=== PATIENT | female | born 1965 | race Caucasian/White ===

== ENCOUNTER 2016-03-12 05:31 | Emergency (ER) | payer BC ==
[~2016-03-12] VITALS: Ht 170.2 cm; Wt 98.9 kg
[~2016-03-12 05:31] MED LIST: CYCL5TAB89 PO; IBUP800T24 PO
[2016-03-12 06:35] LABS: Urine RBC None Seen /hpf (0 - 4)
[2016-03-12 06:38] LABS: Basophils # (auto) 0.2 uL; Eosinophils # (auto) 0.1 uL; Hematocrit 41.7 % (36.0-46.0); Lymphocytes % (auto) 16.7 % (10.0-50.0); Mean Corpuscular Hemoglobin 29.9 pg (28.0-32.0); Mean Corpuscular Hgb Conc. 33.5 g/dL (32.0-36.0); Mean Corpuscular Volume 89.1 fL (80.0-100.0); Mean Platelet Volume 8.6 fL (7.4-10.4); Monocytes % (auto) 8.6 % (0.0-12.0); Neutrophils # (auto) 8.8 uL; Neutrophils % (auto) 71.7 % (37.0-80.0); Platelet Count (auto) 368 10^3/uL (140-450); Red Cell Distribution Width 12.9 % (11.6-16.0); SUSPECT VIEW TRANSMISSION; White Blood Cell 12.1 10^3/uL (4.4-10.8)
[2016-03-12 06:46] LABS: Urine Bilirubin Negative (Negative); Urine Blood Negative /uL (Negative); Urine Color Yellow (Yellow); Urine Glucose Normal (Normal); Urine Hyaline Cast FEW /lpf (0 - 2); Urine Ketone Negative (Negative); Urine Mucus FEW (None Seen); Urine Nitrite Negative (Negative); Urine Squamous Epithelial Cell FEW /hpf (<5); Urine Urobilinogen Normal (Negative)
[2016-03-12 07:06] LABS: Albumin 4.3 g/dL (3.4-5.0); BUN/Creatinine Ratio 16.9; Bilirubin, Total 1.2 mg/dL (0.2-1.0); Calcium 9.7 mg/dL (8.5-10.1); Magnesium 2.1 mg/dL (1.6-2.6); Potassium 3.7 mmol/L (3.5-5.1)
[2016-03-12 07:33] LABS: B-Type Natriuretic Peptide 23.32 pg/mL (0-100)
[2016-03-12] MEDS ORDERED: ACETAMINOPHEN 325 MG TAB PO ONE (10:00)
[2016-03-12 11:33] VITALS: BP 115/60
== END 2016-03-12 11:42 | disposition home or self-care (01) ==
LOC: ER 05:36
DX: J02.9 Acute pharyngitis, unspecified (principal); I10 Essential (primary) hypertension; M54.2 Cervicalgia; R07.9 Chest pain, unspecified
CPT/HCPCS: 36415; 71020; 80053; 81001; 83735; 83880; 84484; 85025; 85379; 87400; 93005; 94761

== ENCOUNTER → 2016-10-06 | Outpatient (CLI) | payer BC ==
[2016-10-06 10:21] LABS: Basophils # (auto) 0.1 uL; CONDITION Y; Eosinophils # (auto) 0.2 uL; Eosinophils % (auto) 3.6 % (0.0-7.0); Hematocrit 41.3 % (36.0-46.0); Hemoglobin 13.9 g/dL (12.2-16.2); Lymphocytes # (auto) 2.7 uL; Lymphocytes % (auto) 43.5 % (10.0-50.0); Mean Corpuscular Hemoglobin 30.5 pg (28.0-32.0); Mean Corpuscular Hgb Conc. 33.8 g/dL (32.0-36.0); Mean Corpuscular Volume 90.3 fL (80.0-100.0); Mean Platelet Volume 8.2 fL (7.4-10.4); Monocytes # (auto) 0.5 uL; Monocytes % (auto) 8.2 % (0.0-12.0); Neutrophils # (auto) 2.7 uL; Neutrophils % (auto) 43.7 % (37.0-80.0); Platelet Count (auto) 400 10^3/uL (140-450); Red Cell Distribution Width 14.5 % (11.6-16.0); White Blood Cell 6.2 10^3/uL (4.4-10.8)
[2016-10-06 10:51] LABS: Urine Bilirubin Negative (Negative); Urine Blood TRACE /uL (Negative); Urine Color Yellow (Yellow); Urine Glucose Normal (Normal); Urine Ketone Negative (Negative); Urine Mucus FEW (None Seen); Urine Nitrite Negative (Negative); Urine RBC 3 /hpf (0 - 4); Urine Squamous Epithelial Cell FEW /hpf (<5); Urine Urobilinogen Normal (Negative); Urine pH 6.5 (5.0-8.0)
[2016-10-06 11:16] LABS: Albumin 3.9 g/dL (3.4-5.0); BUN/Creatinine Ratio 23.4; Bilirubin, Total 1.1 mg/dL (0.2-1.0); Calcium 9.5 mg/dL (8.5-10.1); Potassium 3.8 mmol/L (3.5-5.1); Total Protein 7.9 g/dL (6.4-8.2)
== END | disposition home or self-care (01) ==
LOC: LAB 09:51
PROVIDERS: ATTEND Internal Medicine
DX: I10 Essential (primary) hypertension (principal); E78.5 Hyperlipidemia, unspecified; E11.9 Type 2 diabetes mellitus without complications; E55.9 Vitamin D deficiency, unspecified; N20.0 Calculus of kidney
CPT/HCPCS: 36415; 80053; 80061; 81001; 82306; 83036; 84443; 85025

== ENCOUNTER → 2017-01-25 | Outpatient (CLI) | payer BC ==
[2017-01-25 09:37] LABS: Cholesterol 172 mg/dL (< 200); HDL Cholesterol 70 mg/dL (40-59); LDL Cholesterol 90 mg/dL (< 100); Triglycerides 109 mg/dL (< 150)
== END | disposition home or self-care (01) ==
LOC: LAB 08:36
PROVIDERS: ATTEND Physician Assistant
DX: E78.2 Mixed hyperlipidemia (principal); E03.9 Hypothyroidism, unspecified
CPT/HCPCS: 36415; 80061; 84439; 84443; 84481

== ENCOUNTER 2017-07-22 18:20 | Emergency (ER) | payer BC ==
[~2017-07-22] VITALS: Ht 170.2 cm; Wt 99.8 kg
[2017-07-22 18:30] VITALS: BP 131/95
[2017-07-22] MEDS ORDERED: cefTRIAXone SOD 1,000 MG VL IM ONE (19:45)
[2017-07-22] MEDS ORDERED: IPRATROPIUM BROM 0.5 MG/2.5ML INH SOL NEB ONE (19:45)
[2017-07-22] MEDS ORDERED: TRIAMCINOLONE 40MG/ML 1ML VIAL IM ONE (19:45)
[2017-07-22] MEDS ORDERED: ALBUTEROL SULF 2.5 MG/0.5ML(0.5%) NEB SOLN NEB ONE (19:45)
== END 2017-07-22 20:08 | disposition home or self-care (01) ==
LOC: ER 18:20
DX: J40 Bronchitis, not specified as acute or chronic (principal); I10 Essential (primary) hypertension
CPT/HCPCS: 96372; 99283; J0696; J3301

== ENCOUNTER 2017-10-05 17:26 | Emergency (ER) | payer BC ==
[~2017-10-05] VITALS: Ht 170.2 cm; Wt 97.5 kg
[2017-10-05] MEDS ORDERED: ASPirin 81 mg TAB PO ONE (18:15)
[2017-10-05 18:18] LABS: Basophils # (auto) 0.1 uL; Basophils % (auto) 0.6 % (0.0-2.0); Eosinophils # (auto) 0.1 uL; Eosinophils % (auto) 0.5 % (0.0-7.0); Hematocrit 46.1 % (36.0-46.0); Hemoglobin 16.2 g/dL (12.2-16.2); Lymphocytes # (auto) 2.1 uL; Lymphocytes % (auto) 21.5 % (10.0-50.0); Mean Corpuscular Hemoglobin 31.8 pg (28.0-32.0); Mean Corpuscular Hgb Conc. 35.1 g/dL (32.0-36.0); Mean Corpuscular Volume 90.5 fL (80.0-100.0); Monocytes # (auto) 0.9 uL; Neutrophils # (auto) 6.6 uL; Neutrophils % (auto) 68.4 % (37.0-80.0); Platelet Count (auto) 404 10^3/uL (140-450); Red Cell Distribution Width 14.1 % (11.8-14.3); White Blood Cell 9.7 10^3/uL (4.4-10.8)
[2017-10-05 18:40] LABS: Alanine Aminotransferase 25 U/L (13-56); Albumin 4.4 g/dL (3.4-5.0); Alkaline Phosphatase 94 U/L (45-117); Anion Gap 13 (5-15); Aspartate Aminotransferase 18 U/L (15-37); BUN/Creatinine Ratio 16.2; Bilirubin, Total 1.4 mg/dL (0.2-1.0); Blood Urea Nitrogen 17 mg/dL (7-18); Calcium 9.4 mg/dL (8.5-10.1); Carbon Dioxide 22 mmol/L (21-32); Chloride 100 mmol/L (98-107); GFR African American 71 mL/min; GFR Non-African American 58 mL/min; Glucose 93 mg/dL (74-106); Potassium 3.8 mmol/L (3.5-5.1); Sodium 135 mmol/L (136-145); Total Protein 8.8 g/dL (6.4-8.2)
[2017-10-05 21:23] LABS: Urine Bacteria NONE SEEN /hpf (None Seen); Urine Blood Negative /uL (Negative); Urine Mucus FEW (None Seen); Urine Specific Gravity 1.008 (1.001-1.035); Urine WBC 4 /hpf (0 - 5)
[2017-10-06 00:28] VITALS: BP 126/86
== END 2017-10-06 00:33 | disposition home or self-care (01) ==
LOC: ER 17:27
DX: N23 Unspecified renal colic (principal); N39.0 Urinary tract infection, site not specified; K21.9 Gastro-esophageal reflux disease without esophagitis; I10 Essential (primary) hypertension
CPT/HCPCS: 36415; 71046; 74176; 80053; 81001; 84484; 85025; 85379; 93005; 94761

== ENCOUNTER 2017-10-07 13:41 | Inpatient (IN) | payer BC ==
[~2017-10-07] VITALS: Ht 170.2 cm; Wt 100.3 kg
[2017-10-07] MEDS ORDERED: LORazepam 0.5 MG TAB PO PRN (18:30)
[2017-10-07] MEDS ORDERED: cefTRIAXone 1GM/10ml IVPUSH 10 ML IV ONE (18:30)
[2017-10-07] MEDS ORDERED: NITROGLYCERIN 0.4 MG SL TAB SL PRN (18:30)
[2017-10-07] MEDS ORDERED: TEMAZEPAM 15 MG CAP PO PRN (18:30)
[2017-10-07] MEDS ORDERED: PROMETHAZINE HCL 25 MG/ML 1ML IV PRN (18:30)
[2017-10-07] MEDS ORDERED: MORPHINE SULF INJ 2 MG/ML SYRINGE 1ML IV PRN ×2 (18:30)
[2017-10-07] MEDS: SODIUM CHLORIDE 0.9% 1,000 ML IV SCH (18:44)
[2017-10-07 20:00] VITALS: BP 118/83
[2017-10-07 20:30] VITALS: BP 124/76
[2017-10-07] MEDS: METOPROLOL TARTRATE 25 MG TAB PO SCH (20:30)
[2017-10-07] MEDS: ATORVASTATIN 20 MG TAB PO SCH (20:37)
[2017-10-07 20:40] VITALS: BP 130/73
[2017-10-07] MEDS: ENOXAPARIN SOD 40 MG/0.4 ML SYRINGE SC SCH (21:52)
[2017-10-07 22:00] VITALS: BP 106/78
[2017-10-08] MEDS: ACETAMINOPHEN 500 MG TAB PO PRN ×4 (01:59→19:15)
[2017-10-08] MEDS ORDERED: ATOR20TA50 PO (02:18)
[2017-10-08] MEDS ORDERED: CEPH250C PO (02:18)
[2017-10-08] MEDS ORDERED: TRIA75TA55 PO (02:18)
[2017-10-08] MEDS ORDERED: ATEN-60 PO (02:18)
[2017-10-08] MEDS ORDERED: LANS30TA8 PO (02:18)
[2017-10-08] MEDS ORDERED: MECL-87 PO (02:18)
[2017-10-08 05:00] VITALS: BP 113/68
[2017-10-08] MEDS: SODIUM CHLORIDE 0.9% 1,000 ML IV SCH ×2 (05:03→16:49)
[2017-10-08 05:54] LABS: Cholesterol 152 mg/dL (< 200); HDL Cholesterol 53 mg/dL (40-59); LDL Cholesterol 86 mg/dL (< 100); Triglycerides 89 mg/dL (< 150)
[2017-10-08 08:00] VITALS: BP 114/70
[2017-10-08 08:35] VITALS: BP 114/70
[2017-10-08] MEDS: cefTRIAXone 1GM/10ml IVPUSH 10 ML IV SCH (09:49)
[2017-10-08] MEDS: ASPirin 81 mg TAB PO SCH (09:50)
[2017-10-08] MEDS: ENOXAPARIN SOD 40 MG/0.4 ML SYRINGE SC SCH (09:51)
[2017-10-08] MEDS: METOPROLOL TARTRATE 25 MG TAB PO SCH ×2 (09:59→21:06)
[2017-10-08] MEDS ORDERED: NITROGLYCERIN 0.2MG/HR TOPICAL PATCH TD SCH (10:00)
[2017-10-08] MEDS ORDERED: PANTOPRAZOLE 40 MG TAB PO SCH (10:00)
[2017-10-08] MEDS ORDERED: FLUCONAZOLE 100 MG TAB PO ONE (13:30)
[2017-10-08] MEDS ORDERED: AZITHROMYCIN 250 MG TAB PO ONE (13:30)
[2017-10-08 16:34] VITALS: BP 101/56
[2017-10-08] MEDS: MAGNESIUM OXIDE 400 MG TAB PO SCH (20:59)
[2017-10-08] MEDS: ATORVASTATIN 20 MG TAB PO SCH (21:00)
[2017-10-08] MEDS: PANTOPRAZOLE 40 MG TAB PO SCH (21:00)
[2017-10-08 21:38] VITALS: BP 92/58
[2017-10-08] MEDS: HYDROcodone-ACET 5/325MG TAB PO PRN (23:13)
[2017-10-09 05:09] VITALS: BP 109/65
[2017-10-09] MEDS: SODIUM CHLORIDE 0.9% 1,000 ML IV SCH ×2 (05:11→21:22)
[2017-10-09 05:50] LABS: Basophils # (auto) 0.1 uL; Basophils % (auto) 0.9 % (0.0-2.0); Eosinophils # (auto) 0.1 uL; Eosinophils % (auto) 1.8 % (0.0-7.0); Hematocrit 39.5 % (36.0-46.0); Hemoglobin 13.5 g/dL (12.2-16.2); Lymphocytes % (auto) 33.5 % (10.0-50.0); Mean Corpuscular Hgb Conc. 34.1 g/dL (32.0-36.0); Mean Corpuscular Volume 90.9 fL (80.0-100.0); Monocytes # (auto) 0.6 uL; Monocytes % (auto) 9.5 % (0.0-12.0); Neutrophils # (auto) 3.2 uL; Neutrophils % (auto) 54.3 % (37.0-80.0); Nucleated Red Blood Cells % 0.2 %; Platelet Count (auto) 323 10^3/uL (140-450); Red Blood Cells 4.35 10^6/uL (4.0-5.20); White Blood Cell 5.9 10^3/uL (4.4-10.8)
[2017-10-09 06:23] LABS: Albumin 3.5 g/dL (3.4-5.0); BUN/Creatinine Ratio 17.4; Bilirubin, Total 1.1 mg/dL (0.2-1.0); Calcium 8.5 mg/dL (8.5-10.1); Potassium 3.6 mmol/L (3.5-5.1); Total Protein 6.8 g/dL (6.4-8.2)
[2017-10-09 08:19] VITALS: BP 122/76
[2017-10-09] MEDS ORDERED: AZITHROMYCIN 250 MG TAB PO SCH (10:00)
[2017-10-09] MEDS: cefTRIAXone 1GM/10ml IVPUSH 10 ML IV SCH (10:09)
[2017-10-09] MEDS: ENOXAPARIN SOD 40 MG/0.4 ML SYRINGE SC SCH (10:10)
[2017-10-09] MEDS: PANTOPRAZOLE 40 MG TAB PO SCH ×2 (10:11→21:22)
[2017-10-09] MEDS: METOPROLOL TARTRATE 25 MG TAB PO SCH ×2 (10:12→21:10)
[2017-10-09] MEDS: FLUCONAZOLE 100 MG TAB PO SCH (10:13)
[2017-10-09] MEDS: MAGNESIUM OXIDE 400 MG TAB PO SCH ×2 (10:13→21:05)
[2017-10-09] MEDS: ASPirin 81 mg TAB PO SCH (10:13)
[2017-10-09] MEDS: LEVOFLOXACIN 750MG 150 ML IV SCH (11:40)
[2017-10-09 12:01] VITALS: BP 120/67
[2017-10-09 16:40] VITALS: BP 115/69
[2017-10-09] MEDS: ATORVASTATIN 20 MG TAB PO SCH (21:05)
[2017-10-09] MEDS: HYDROcodone-ACET 5/325MG TAB PO PRN (21:11)
[2017-10-09 22:00] VITALS: BP 129/75
[2017-10-10] MEDS: ACETAMINOPHEN 500 MG TAB PO PRN (04:17)
[2017-10-10 05:00] VITALS: BP 122/76
[2017-10-10 09:00] VITALS: BP 115/69
[2017-10-10] MEDS: MAGNESIUM OXIDE 400 MG TAB PO SCH ×2 (10:47→21:40)
[2017-10-10] MEDS: ASPirin 81 mg TAB PO SCH (10:47)
[2017-10-10] MEDS: ENOXAPARIN SOD 40 MG/0.4 ML SYRINGE SC SCH (10:47)
[2017-10-10] MEDS: LEVOFLOXACIN 750MG 150 ML IV SCH (10:47)
[2017-10-10] MEDS: PANTOPRAZOLE 40 MG TAB PO SCH ×2 (10:48→21:41)
[2017-10-10] MEDS: METOPROLOL TARTRATE 25 MG TAB PO SCH ×2 (10:48→21:40)
[2017-10-10] MEDS: FLUCONAZOLE 100 MG TAB PO SCH (10:48)
[2017-10-10 13:00] VITALS: BP 124/77
[2017-10-10] MEDS: SODIUM CHLORIDE 0.9% 1,000 ML IV SCH (15:26)
[2017-10-10 17:03] VITALS: BP 137/84
[2017-10-10] MEDS: ATORVASTATIN 20 MG TAB PO SCH (21:39)
[2017-10-10 22:00] VITALS: BP 131/68
[2017-10-11 05:00] VITALS: BP 134/69
[2017-10-11 06:16] LABS: Basophils # (auto) 0.1 uL; Basophils % (auto) 1.2 % (0.0-2.0); Eosinophils # (auto) 0.2 uL; Hematocrit 38.8 % (36.0-46.0); Hemoglobin 13.3 g/dL (12.2-16.2); Lymphocytes # (auto) 2.1 uL; Lymphocytes % (auto) 39.7 % (10.0-50.0); Mean Corpuscular Hemoglobin 31.2 pg (28.0-32.0); Mean Corpuscular Hgb Conc. 34.2 g/dL (32.0-36.0); Mean Corpuscular Volume 91.2 fL (80.0-100.0); Monocytes # (auto) 0.5 uL; Monocytes % (auto) 9.9 % (0.0-12.0); Neutrophils # (auto) 2.4 uL; Neutrophils % (auto) 45.2 % (37.0-80.0); Nucleated Red Blood Cells % 0.1 %; Platelet Count (auto) 318 10^3/uL (140-450); Red Blood Cells 4.26 10^6/uL (4.0-5.20); Red Cell Distribution Width 13.9 % (11.8-14.3); White Blood Cell 5.4 10^3/uL (4.4-10.8)
[2017-10-11 06:33] LABS: Potassium 3.2 mmol/L (3.5-5.1)
[2017-10-11 06:36] LABS: BUN/Creatinine Ratio 10.1
[2017-10-11 08:00] VITALS: BP 139/75
[2017-10-11] MEDS: HYDROcodone-ACET 5/325MG TAB PO PRN (08:25)
[2017-10-11] MEDS: SODIUM CHLORIDE 0.9% 1,000 ML IV SCH (09:10)
[2017-10-11] MEDS ORDERED: ADENOSINE 84 MG in GIVE UN-DILUTED 0 ML IV ONE (09:30)
[2017-10-11 09:36] VITALS: BP 139/75
[2017-10-11 10:48] VITALS: BP 150/95
[2017-10-11] MEDS ORDERED: FLUC100T34 PO (12:26)
[2017-10-11] MEDS ORDERED: LEVO-28 PO (12:26)
[2017-10-11] MEDS ORDERED: CHOL20007 PO (12:26)
[2017-10-11 12:30] VITALS: BP 126/75
[2017-10-11] MEDS ORDERED: MORPHINE SULF INJ 2 MG/ML SYRINGE 1ML IV PRN ×2 (12:30)
[2017-10-11] MEDS ORDERED: HYDROcodone-ACET 5/325MG TAB PO PRN (12:30)
[2017-10-11] MEDS ORDERED: POTASSIUM CHL 20 Meq TABLET PO ONE (12:30)
[2017-10-11] MEDS: LEVOFLOXACIN 750MG 150 ML IV SCH (14:29)
[2017-10-11] MEDS: ENOXAPARIN SOD 40 MG/0.4 ML SYRINGE SC SCH (14:29)
[2017-10-11] MEDS: MAGNESIUM OXIDE 400 MG TAB PO SCH (14:30)
[2017-10-11] MEDS: FLUCONAZOLE 100 MG TAB PO SCH (14:30)
[2017-10-11] MEDS: PANTOPRAZOLE 40 MG TAB PO SCH (14:30)
[2017-10-11] MEDS: ASPirin 81 mg TAB PO SCH (14:30)
[2017-10-11] MEDS: METOPROLOL TARTRATE 25 MG TAB PO SCH (14:33)
[2017-10-11 16:59] VITALS: BP 112/77
== END 2017-10-11 19:14 | disposition home or self-care (01) | DRG 690 ==
LOC: ER 13:45 → TELE 13:46 → TELE-WESTW 19:56
PROVIDERS: ADMIT Internal Medicine; ATTEND Internal Medicine
DX: N39.0 Urinary tract infection, site not specified (principal); I25.10 Atherosclerotic heart disease of native coronary artery without angina pectoris; E66.01 Morbid (severe) obesity due to excess calories; F41.9 Anxiety disorder, unspecified; J32.8 Other chronic sinusitis; K21.9 Gastro-esophageal reflux disease without esophagitis; I10 Essential (primary) hypertension; B96.5 Pseudomonas (aeruginosa) (mallei) (pseudomallei) as the cause of diseases classified elsewhere; E78.5 Hyperlipidemia, unspecified; I49.3 Ventricular premature depolarization; J01.90 Acute sinusitis, unspecified; Z80.9 Family history of malignant neoplasm, unspecified; Z68.34 Body mass index [BMI] 34.0-34.9, adult; Z87.442 Personal history of urinary calculi
CPT/HCPCS: 36415; 70450; 70551; 78452; 80048; 80053; 80061; 82306; 82550; 82962; 83735; 83880; 84443; 84484; 85025; 85379; 85652; 86141; 87086; 87088; 87186; 93005; 93017; 93306; 96361; 96374; A6257; J0153; J0696; J1956

== ENCOUNTER → 2017-10-19 | Outpatient (CLI) | payer BC ==
[~2017-10-19] MED LIST changes: +ATEN-60 PO; +ATOR20TA50 PO; +CHOL20007 PO; -CYCL5TAB89 PO; +FLUC100T34 PO; -IBUP800T24 PO; +LANS30TA8 PO; +LEVO-28 PO; +MECL-87 PO; +TRIA75TA55 PO
[2017-10-19 12:07] LABS: Urine Bacteria NONE SEEN /hpf (None Seen); Urine Blood Negative /uL (Negative); Urine Mucus FEW (None Seen); Urine Specific Gravity 1.017 (1.001-1.035); Urine WBC 2 /hpf (0 - 5)
== END | disposition home or self-care (01) ==
LOC: LAB 11:51
PROVIDERS: ATTEND Registered Nurse General Practice
DX: N39.0 Urinary tract infection, site not specified (principal); K21.9 Gastro-esophageal reflux disease without esophagitis; I10 Essential (primary) hypertension
CPT/HCPCS: 81001; 87086

== ENCOUNTER → 2017-12-01 | Outpatient (CLI) | payer BC | END | disposition home or self-care (01) | LOC: LAB 07:29 | PROVIDERS: ATTEND Physician Assistant | DX: N39.0 Urinary tract infection, site not specified (principal) | CPT/HCPCS: 87086 ==

== ENCOUNTER → 2018-08-22 | Outpatient (CLI) | payer BC ==
[2018-08-22 10:47] LABS: Basophils # (auto) 0.1 uL; Basophils % (auto) 1.2 % (0.0-2.0); Eosinophils # (auto) 0.2 uL; Eosinophils % (auto) 4.3 % (0.0-7.0); Hematocrit 41.7 % (36.0-46.0); Lymphocytes # (auto) 2.2 uL; Lymphocytes % (auto) 43.3 % (10.0-50.0); Mean Corpuscular Hemoglobin 30.5 pg (28.0-32.0); Mean Corpuscular Hgb Conc. 33.7 g/dL (32.0-36.0); Mean Corpuscular Volume 90.5 fL (80.0-100.0); Monocytes # (auto) 0.4 uL; Monocytes % (auto) 8.4 % (0.0-12.0); Neutrophils # (auto) 2.2 uL; Neutrophils % (auto) 42.8 % (37.0-80.0); Platelet Count (auto) 308 10^3/uL (140-450); White Blood Cell 5.2 10^3/uL (4.4-10.8)
[2018-08-22 10:53] LABS: Urine Bacteria FEW /hpf (None Seen); Urine Blood 1+ /uL (Negative); Urine Mucus FEW (None Seen); Urine Specific Gravity 1.024 (1.001-1.035); Urine WBC 3 /hpf (0 - 5)
[2018-08-22 14:01] LABS: Albumin 3.9 g/dL (3.4-5.0); Bilirubin, Total 0.9 mg/dL (0.2-1.0); Calcium 9.1 mg/dL (8.5-10.1); Total Protein 7.3 g/dL (6.4-8.2)
== END | disposition home or self-care (01) ==
LOC: LAB 10:24
PROVIDERS: ATTEND Internal Medicine
DX: N39.0 Urinary tract infection, site not specified (principal); E55.9 Vitamin D deficiency, unspecified; I10 Essential (primary) hypertension; F41.1 Generalized anxiety disorder; R73.03 Prediabetes
CPT/HCPCS: 36415; 80053; 81001; 83036; 84443; 84550; 85025

== ENCOUNTER → 2018-08-31 | Outpatient (CLI) | payer BC | END | disposition home or self-care (01) | LOC: LAB 12:05 | PROVIDERS: ATTEND Internal Medicine | DX: R31.29 Other microscopic hematuria (principal) | CPT/HCPCS: 87086 ==

== ENCOUNTER → 2018-11-23 | Outpatient (CLI) | payer BC ==
[2018-11-23 12:12] LABS: Cholesterol 211 mg/dL (< 200); HDL Cholesterol 59 mg/dL (40-59); LDL Cholesterol 143 mg/dL (< 100); Triglycerides 73 mg/dL (< 150)
== END | disposition home or self-care (01) ==
LOC: LAB 09:54
PROVIDERS: ATTEND Internal Medicine
DX: Z12.11 Encounter for screening for malignant neoplasm of colon (principal); E11.9 Type 2 diabetes mellitus without complications
CPT/HCPCS: 36415; 80061; 82043

== ENCOUNTER → 2018-11-28 | Outpatient (CLI) | payer BC | END | disposition home or self-care (01) | LOC: LAB 12:58 | PROVIDERS: ATTEND Internal Medicine | DX: Z12.11 Encounter for screening for malignant neoplasm of colon (principal); E11.9 Type 2 diabetes mellitus without complications | CPT/HCPCS: 82270 ==

== ENCOUNTER → 2018-12-14 | Outpatient (CLI) | payer BC ==
[2018-12-14 17:15] LABS: Albumin 4.1 g/dL (3.4-5.0)
[2018-12-14 17:50] LABS: Bilirubin, Total 0.9 mg/dL (0.2-1.0)
[2018-12-14 17:51] LABS: Total Protein 7.9 g/dL (6.4-8.2)
[2018-12-14 23:10] LABS: Bilirubin, Direct 0.2 mg/dL (0-0.2)
== END | disposition home or self-care (01) ==
LOC: LAB 15:42
PROVIDERS: ATTEND Internal Medicine
DX: E11.9 Type 2 diabetes mellitus without complications (principal); I10 Essential (primary) hypertension
CPT/HCPCS: 36415; 80076

== ENCOUNTER → 2018-12-28 | Outpatient (CLI) | payer BC ==
[2018-12-28 09:30] LABS: Basophils # (auto) 0.1 uL; Basophils % (auto) 1.2 % (0.0-2.0); Eosinophils # (auto) 0.2 uL; Eosinophils % (auto) 2.4 % (0.0-7.0); Hematocrit 40.9 % (36.0-46.0); Hemoglobin 13.9 g/dL (12.2-16.2); Lymphocytes # (auto) 2.8 uL; Lymphocytes % (auto) 37.3 % (10.0-50.0); Mean Corpuscular Hemoglobin 30.8 pg (28.0-32.0); Mean Corpuscular Hgb Conc. 34.1 g/dL (32.0-36.0); Mean Corpuscular Volume 90.4 fL (80.0-100.0); Monocytes # (auto) 0.6 uL; Monocytes % (auto) 8.5 % (0.0-12.0); Neutrophils # (auto) 3.9 uL; Neutrophils % (auto) 50.6 % (37.0-80.0); Platelet Count (auto) 365 10^3/uL (140-450); Red Blood Cells 4.53 10^6/uL (4.0-5.20); Red Cell Distribution Width 13.9 % (11.8-14.3); White Blood Cell 7.6 10^3/uL (4.4-10.8)
[2018-12-28 09:47] LABS: INR 1.01 (0.9-1.15); Partial Thromboplastin Time 24.8 sec (23.64-32.05)
[2018-12-28 10:12] LABS: Potassium 4.1 mmol/L (3.5-5.1)
[2018-12-28 10:18] LABS: BUN/Creatinine Ratio 27.3; Calcium 9.1 mg/dL (8.5-10.1)
== END | disposition home or self-care (01) ==
LOC: LAB 08:48
PROVIDERS: ATTEND Internal Medicine
DX: Z01.818 Encounter for other preprocedural examination (principal); I10 Essential (primary) hypertension; K21.9 Gastro-esophageal reflux disease without esophagitis; E66.9 Obesity, unspecified; E78.5 Hyperlipidemia, unspecified; F41.9 Anxiety disorder, unspecified; Z98.890 Other specified postprocedural states
CPT/HCPCS: 36415; 80048; 85025; 85610; 85730

== ENCOUNTER → 2018-12-30 | Outpatient (CLI) | payer BC | END | disposition home or self-care (01) | LOC: Rad HDHVI 08:54 | PROVIDERS: ATTEND Internal Medicine Cardiovascular Disease | DX: R42 Dizziness and giddiness (principal); R53.83 Other fatigue; R94.39 Abnormal result of other cardiovascular function study | CPT/HCPCS: 93306 ==

== ENCOUNTER → 2019-01-16 | Outpatient (CLI) | payer BC ==
[2019-01-16 09:56] LABS: Basophils # (auto) 0.1 uL; Basophils % (auto) 1.2 % (0.0-2.0); Eosinophils # (auto) 0.3 uL; Eosinophils % (auto) 3.7 % (0.0-7.0); Hemoglobin 14.5 g/dL (12.2-16.2); Mean Corpuscular Hemoglobin 30.7 pg (28.0-32.0); Mean Corpuscular Hgb Conc. 33.8 g/dL (32.0-36.0); Mean Corpuscular Volume 90.7 fL (80.0-100.0); Monocytes # (auto) 0.6 uL; Monocytes % (auto) 8.9 % (0.0-12.0); Neutrophils # (auto) 2.8 uL; Neutrophils % (auto) 42.2 % (37.0-80.0); Nucleated Red Blood Cells % 0.1 %; Platelet Count (auto) 337 10^3/uL (140-450); Red Blood Cells 4.74 10^6/uL (4.0-5.20); Red Cell Distribution Width 14.3 % (11.8-14.3); White Blood Cell 6.7 10^3/uL (4.4-10.8)
[2019-01-16 10:35] LABS: Potassium 4.2 mmol/L (3.5-5.1)
[2019-01-16 10:49] LABS: Albumin 4.2 g/dL (3.4-5.0); BUN/Creatinine Ratio 17.8; Bilirubin, Total 0.9 mg/dL (0.2-1.0); Calcium 9.3 mg/dL (8.5-10.1)
[2019-01-16 10:53] LABS: INR 1.01 (0.9-1.15); Partial Thromboplastin Time 24.6 sec (23.64-32.05)
== END | disposition home or self-care (01) ==
LOC: LAB 09:32
PROVIDERS: ATTEND Internal Medicine
DX: Z01.818 Encounter for other preprocedural examination (principal); E11.9 Type 2 diabetes mellitus without complications; E78.5 Hyperlipidemia, unspecified; K21.9 Gastro-esophageal reflux disease without esophagitis; I10 Essential (primary) hypertension
CPT/HCPCS: 36415; 80053; 85025; 85610; 85730

== ENCOUNTER → 2019-01-18 | Outpatient (CLI) | payer BC ==
[2019-01-18 10:35] LABS: Urine Bacteria NONE SEEN /hpf (None Seen); Urine Blood 1+ /uL (Negative); Urine Mucus FEW (None Seen); Urine Specific Gravity 1.022 (1.001-1.035); Urine WBC 2 /hpf (0 - 5)
[2019-01-18 10:59] LABS: Albumin 4.1 g/dL (3.4-5.0)
[2019-01-18 11:03] LABS: Bilirubin, Direct 0.2 mg/dL (0-0.2); Bilirubin, Total 0.7 mg/dL (0.2-1.0)
== END | disposition home or self-care (01) ==
LOC: LAB 09:59
PROVIDERS: ATTEND Internal Medicine
DX: I10 Essential (primary) hypertension (principal); E11.9 Type 2 diabetes mellitus without complications
CPT/HCPCS: 36415; 80061; 80076; 81001; 82306; 83036

== ENCOUNTER 2019-01-19 07:20 | Day surgery (SDC) | payer BC ==
[~2019-01-19] VITALS: Ht 170.2 cm; Wt 101.2 kg
[2019-01-19] MEDS ORDERED: LIDOCAINE 2%HCL (LOCAL ANESTH.) INJ 20ML MDV ONE (08:41)
[2019-01-19] MEDS ORDERED: IOHEXOL 350 MG/ML 100ML IJ ONE ×2 (08:43→09:45)
[2019-01-19] MEDS ORDERED: SODIUM CHL 0.9% 0 ML ONE (08:48)
[2019-01-19] MEDS ORDERED: fentaNYL CITRATE 100 MCG/2 ML VL ONE (08:48)
[2019-01-19] MEDS ORDERED: MIDAZOLAM HCL 1MG/1ML-2 ML VIAL ONE (08:48)
[2019-01-19] MEDS ORDERED: ANGIOMAX 250 MG VIAL IV ONE (08:48)
== END 2019-01-19 12:15 | disposition home or self-care (01) ==
LOC: CATH 07:20
PROVIDERS: ATTEND Internal Medicine Cardiovascular Disease
DX: R94.39 Abnormal result of other cardiovascular function study (principal); R06.02 Shortness of breath; I10 Essential (primary) hypertension; E78.5 Hyperlipidemia, unspecified; E66.9 Obesity, unspecified; F41.9 Anxiety disorder, unspecified; Z82.49 Family history of ischemic heart disease and other diseases of the circulatory system; Z79.899 Other long term (current) drug therapy; Z68.34 Body mass index [BMI] 34.0-34.9, adult
CPT/HCPCS: 93458; C1760; C1894; J1644; J2250; J3010; Q9967; 99152

== ENCOUNTER → 2019-02-02 | Outpatient (CLI) | payer BC | END | disposition home or self-care (01) | LOC: XY 08:50 | PROVIDERS: ATTEND Internal Medicine | DX: R42 Dizziness and giddiness (principal) | CPT/HCPCS: 93886 ==

== ENCOUNTER → 2019-02-24 | Outpatient (CLI) | payer BC | END | disposition home or self-care (01) | LOC: LAB 06:54 | PROVIDERS: ATTEND Urology | DX: N39.0 Urinary tract infection, site not specified (principal) | CPT/HCPCS: 87086 ==

== ENCOUNTER → 2019-03-06 | Day surgery (SDC) | payer BC ==
[2019-03-02 09:19] LABS: Basophils # (auto) 0.1 uL; Basophils % (auto) 1.6 % (0.0-2.0); Eosinophils # (auto) 0.3 uL; Eosinophils % (auto) 5.1 % (0.0-7.0); Hematocrit 39.2 % (36.0-46.0); Hemoglobin 13.3 g/dL (12.2-16.2); Lymphocytes # (auto) 2.3 uL; Mean Corpuscular Hemoglobin 30.6 pg (28.0-32.0); Mean Corpuscular Hgb Conc. 33.8 g/dL (32.0-36.0); Mean Corpuscular Volume 90.5 fL (80.0-100.0); Monocytes # (auto) 0.6 uL; Monocytes % (auto) 10.1 % (0.0-12.0); Neutrophils # (auto) 2.4 uL; Neutrophils % (auto) 42.2 % (37.0-80.0); Platelet Count (auto) 331 10^3/uL (140-450); Red Blood Cells 4.34 10^6/uL (4.0-5.20); Red Cell Distribution Width 14.4 % (11.8-14.3); White Blood Cell 5.6 10^3/uL (4.4-10.8)
[2019-03-02 10:54] LABS: INR 1.02 (0.9-1.15); Partial Thromboplastin Time 26.1 sec (23.64-32.05)
[~2019-03-06] VITALS: Ht 170.2 cm; Wt 107.0 kg
[~2019-03-06] MED LIST changes: +ALPR0.254 PO; -CHOL20007 PO; -FLUC100T34 PO; +FLUMAZENIL 0.1 MG/ML INJ 10ML MDV IV ONE; -LEVO-28 PO; -MECL-87 PO; +NALOXONE HCL 0.4 MG/ML VIAL ONE; +SODIUM CHLORIDE LOCK 10 ML ONE; -TRIA75TA55 PO; +diphenhdrAMINE HCL 50 MG/1 ML VL ONE
[2019-03-06] MEDS: MIDAZOLAM HCL 5 MG/ML-1ML VIAL ONE ×2 (09:11→09:14)
[2019-03-06] MEDS: fentaNYL CITRATE 100 MCG/2 ML VL ONE ×2 (09:11→09:14)
[2019-03-06 09:57] VITALS: BP 107/64
== END | disposition home or self-care (01) ==
LOC: GI 07:51
PROVIDERS: ATTEND Internal Medicine Gastroenterology
DX: Z12.11 Encounter for screening for malignant neoplasm of colon (principal); K63.5 Polyp of colon; K64.8 Other hemorrhoids; F41.9 Anxiety disorder, unspecified; F32.9 Major depressive disorder, single episode, unspecified; E78.5 Hyperlipidemia, unspecified; E66.8 Other obesity; I10 Essential (primary) hypertension; K21.9 Gastro-esophageal reflux disease without esophagitis; Z87.442 Personal history of urinary calculi; Z78.0 Asymptomatic menopausal state; Z68.38 Body mass index [BMI] 38.0-38.9, adult; Z79.899 Other long term (current) drug therapy
CPT/HCPCS: 36415; 45380; 85025; 85610; 85730; 88305; J1200; J2250; J3010; J7030; 99152

== ENCOUNTER → 2019-04-13 | Outpatient (CLI) | payer BC ==
[~2019-04-13] MED LIST changes: -FLUMAZENIL 0.1 MG/ML INJ 10ML MDV IV ONE; -NALOXONE HCL 0.4 MG/ML VIAL ONE; -SODIUM CHLORIDE LOCK 10 ML ONE; -diphenhdrAMINE HCL 50 MG/1 ML VL ONE
== END | disposition home or self-care (01) ==
LOC: LAB 13:36
PROVIDERS: ATTEND Urology
DX: N39.0 Urinary tract infection, site not specified (principal)
CPT/HCPCS: 87086

== ENCOUNTER → 2019-04-24 | Outpatient (CLI) | payer BC ==
[2019-04-24 10:38] LABS: Albumin 3.8 g/dL (3.4-5.0)
[2019-04-24 10:41] LABS: Bilirubin, Direct 0.2 mg/dL (0-0.2); Bilirubin, Total 0.8 mg/dL (0.2-1.0); Total Protein 7.4 g/dL (6.4-8.2)
== END | disposition home or self-care (01) ==
LOC: LAB 09:52
PROVIDERS: ATTEND Internal Medicine
DX: E11.9 Type 2 diabetes mellitus without complications (principal); I10 Essential (primary) hypertension; E78.5 Hyperlipidemia, unspecified
CPT/HCPCS: 36415; 80061; 80076

== ENCOUNTER 2019-05-21 12:49 | Emergency (ER) | payer BC ==
[~2019-05-21] VITALS: Ht 170.2 cm; Wt 104.3 kg
[2019-05-21] MEDS ORDERED: traMADol HCL 50 MG TAB PO ONE (14:45)
[2019-05-21 14:54] LABS: Urine Bacteria NONE SEEN /hpf (None Seen); Urine Blood 2+ /uL (Negative); Urine Mucus FEW (None Seen); Urine Specific Gravity 1.024 (1.001-1.035); Urine WBC 2 /hpf (0 - 5)
[2019-05-21 15:02] LABS: Basophils # (auto) 0.1 10 ^3/uL (0-0.2); Basophils % (auto) 0.6 % (0.0-2.0); Eosinophils # (auto) 0 10 ^3/uL (0-0.8); Eosinophils % (auto) 0.1 % (0.0-7.0); Hematocrit 43.1 % (36.0-46.0); Hemoglobin 14.7 g/dL (12.2-16.2); Lymphocytes # (auto) 1.5 10 ^3/uL (0.4-5.4); Mean Corpuscular Hemoglobin 31.1 pg (28.0-32.0); Mean Corpuscular Hgb Conc. 34.2 g/dL (32.0-36.0); Mean Corpuscular Volume 90.9 fL (80.0-100.0); Monocytes # (auto) 1.5 10 ^3/uL (0-1.3); Monocytes % (auto) 9.8 % (0.0-12.0); Neutrophils # (auto) 12.2 10 ^3/uL (1.6-8.6); Neutrophils % (auto) 79.5 % (37.0-80.0); Platelet Count (auto) 321 10^3/uL (140-450); Red Blood Cells 4.74 10^6/uL (4.0-5.20); White Blood Cell 15.3 10^3/uL (4.4-10.8)
[2019-05-21 15:20] LABS: Albumin 4.3 g/dL (3.4-5.0); Calcium 9.7 mg/dL (8.5-10.1); Potassium 3.7 mmol/L (3.5-5.1)
[2019-05-21 15:21] LABS: Amylase 51 U/L (25-115); Lipase 95 U/L (73-393)
[2019-05-21 15:23] LABS: Bilirubin, Total 1.4 mg/dL (0.2-1.0); Total Protein 8.4 g/dL (6.4-8.2)
[2019-05-21 16:40] VITALS: BP 122/63
== END 2019-05-21 17:11 | disposition home or self-care (01) ==
LOC: ER 12:49
DX: N20.0 Calculus of kidney (principal); J18.9 Pneumonia, unspecified organism; K21.9 Gastro-esophageal reflux disease without esophagitis; E78.5 Hyperlipidemia, unspecified; I10 Essential (primary) hypertension
CPT/HCPCS: 36415; 71046; 74176; 80053; 81001; 82150; 83690; 85025; 93005

== ENCOUNTER → 2019-05-23 | Outpatient (CLI) | payer OTHER | END | disposition home or self-care (01) | LOC: LAB 15:19 | PROVIDERS: ATTEND Nurse Practitioner Family | DX: Z03.818 Encounter for observation for suspected exposure to other biological agents ruled out (principal) | CPT/HCPCS: C9803; U0003 ==

== ENCOUNTER → 2019-07-31 | Outpatient (CLI) | payer BC | END | disposition home or self-care (01) | LOC: LAB 10:26 | PROVIDERS: ATTEND Internal Medicine | DX: I10 Essential (primary) hypertension (principal); E55.9 Vitamin D deficiency, unspecified; R73.03 Prediabetes | CPT/HCPCS: 36415; 82306; 82550; 83036 ==

== ENCOUNTER → 2019-08-07 | Outpatient (CLI) | payer BC ==
[2019-08-07 12:56] LABS: Basophils # (auto) 0.1 10 ^3/uL (0-0.2); Basophils % (auto) 1.5 % (0.0-2.0); Eosinophils # (auto) 0.2 10 ^3/uL (0-0.8); Lymphocytes # (auto) 2.3 10 ^3/uL (0.4-5.4); Lymphocytes % (auto) 42.2 % (10.0-50.0); Mean Corpuscular Hemoglobin 30.7 pg (28.0-32.0); Mean Corpuscular Hgb Conc. 34.1 g/dL (32.0-36.0); Mean Corpuscular Volume 90.1 fL (80.0-100.0); Monocytes # (auto) 0.5 10 ^3/uL (0-1.3); Monocytes % (auto) 8.4 % (0.0-12.0); Neutrophils # (auto) 2.4 10 ^3/uL (1.6-8.6); Neutrophils % (auto) 43.9 % (37.0-80.0); Nucleated Red Blood Cells % 0.2 %; Platelet Count (auto) 359 10^3/uL (140-450); Red Blood Cells 4.55 10^6/uL (4.0-5.20); Red Cell Distribution Width 13.9 % (11.8-14.3); White Blood Cell 5.5 10^3/uL (4.4-10.8)
[2019-08-07 13:23] LABS: Calcium 9.4 mg/dL (8.5-10.1); Potassium 3.9 mmol/L (3.5-5.1)
[2019-08-07 13:30] LABS: Albumin 4.1 g/dL (3.4-5.0); BUN/Creatinine Ratio 19.4; Bilirubin, Total 0.9 mg/dL (0.2-1.0); CRP High Sensitivity 0.22 mg/dL (< 0.3); Total Protein 7.5 g/dL (6.4-8.2)
== END | disposition home or self-care (01) ==
LOC: LAB 12:33
PROVIDERS: ATTEND Internal Medicine
DX: N20.0 Calculus of kidney (principal); E78.5 Hyperlipidemia, unspecified; R73.03 Prediabetes
CPT/HCPCS: 36415; 80053; 84443; 85025; 85652; 86141

== ENCOUNTER → 2019-12-08 | Outpatient (CLI) | payer BC ==
[2019-12-08 16:43] LABS: Albumin 4.2 g/dL (3.4-5.0); Calcium 9.9 mg/dL (8.5-10.1)
[2019-12-08 16:46] LABS: BUN/Creatinine Ratio 15.7
== END | disposition home or self-care (01) ==
LOC: LAB 15:42
PROVIDERS: ATTEND Internal Medicine
DX: N39.0 Urinary tract infection, site not specified (principal); R73.03 Prediabetes; E55.9 Vitamin D deficiency, unspecified; E78.5 Hyperlipidemia, unspecified
CPT/HCPCS: 36415; 80061; 80069; 82043; 82306

== ENCOUNTER → 2019-12-13 | Outpatient (CLI) | payer BC | END | disposition home or self-care (01) | LOC: LAB 16:43 | PROVIDERS: ATTEND Internal Medicine | DX: E78.5 Hyperlipidemia, unspecified (principal); N39.0 Urinary tract infection, site not specified; R73.03 Prediabetes; E55.9 Vitamin D deficiency, unspecified | CPT/HCPCS: 82270 ==

== ENCOUNTER → 2019-12-19 | Outpatient (CLI) | payer BC | END | disposition home or self-care (01) | LOC: CT 08:45 | PROVIDERS: ATTEND Urology | DX: N20.1 Calculus of ureter (principal); D35.01 Benign neoplasm of right adrenal gland; I70.0 Atherosclerosis of aorta; R10.9 Unspecified abdominal pain | CPT/HCPCS: 74176 ==

== ENCOUNTER → 2020-02-02 | Outpatient (CLI) | payer OTHER | END | disposition home or self-care (01) | LOC: LAB 14:04 | PROVIDERS: ATTEND Physician Assistant | DX: Z20.828 Contact with and (suspected) exposure to other viral communicable diseases (principal) | CPT/HCPCS: C9803; U0003 ==

== ENCOUNTER 2020-02-03 12:14 | Emergency (ER) | payer BC ==
[~2020-02-03] VITALS: Ht 170.2 cm; Wt 102.5 kg
[2020-02-03 12:45] LABS: Basophils # (auto) 0.1 10 ^3/uL (0-0.2); Basophils % (auto) 1.3 % (0.0-2.0); Eosinophils # (auto) 0.2 10 ^3/uL (0-0.8); Eosinophils % (auto) 3.1 % (0.0-7.0); Hematocrit 41.1 % (36.0-46.0); Hemoglobin 14.2 g/dL (12.2-16.2); Lymphocytes # (auto) 2.3 10 ^3/uL (0.4-5.4); Lymphocytes % (auto) 34.3 % (10.0-50.0); Mean Corpuscular Hemoglobin 30.8 pg (28.0-32.0); Mean Corpuscular Hgb Conc. 34.6 g/dL (32.0-36.0); Mean Corpuscular Volume 89.2 fL (80.0-100.0); Monocytes # (auto) 0.6 10 ^3/uL (0-1.3); Monocytes % (auto) 9.2 % (0.0-12.0); Neutrophils # (auto) 3.5 10 ^3/uL (1.6-8.6); Neutrophils % (auto) 52.1 % (37.0-80.0); Platelet Count (auto) 357 10^3/uL (140-450); Red Blood Cells 4.61 10^6/uL (4.0-5.20); Red Cell Distribution Width 14.3 % (11.8-14.3); White Blood Cell 6.8 10^3/uL (4.4-10.8)
[2020-02-03 13:06] LABS: Potassium 4.1 mmol/L (3.5-5.1)
[2020-02-03 13:14] LABS: Albumin 4.2 g/dL (3.4-5.0); BUN/Creatinine Ratio 17.8; Bilirubin, Total 1.2 mg/dL (0.2-1.0); Calcium 9.5 mg/dL (8.5-10.1)
[2020-02-03] MEDS ORDERED: ONDANSETRON HCL 4 MG/2 ML VIAL IV ONE (13:15)
[2020-02-03] MEDS ORDERED: SODIUM CHLORIDE 0.9% 1,000 ML IVB ONE (13:15)
[2020-02-03] MEDS ORDERED: KETOROLAC TROMETH 30 MG/ML 1ML VIAL IV ONE (13:15)
[2020-02-03] MEDS ORDERED: TAMSULOSIN HYDROCHLORIDE 0.4 MG CAP PO ONE (13:15)
--- NOTE | 2020-02-03 14:51 | NUR ---
PATIENT ARRIVED TO THIS RN. PATIENT ALERT AND ORIENTED X4. PATIENT REPORTS PAIN TO LEFT FLANK AND ABDOMEN. PATIENT DENIES ANY NAUSEA OR VOMITING AT THIS TIME. IV ACCESS OBTAINED TO R WRIST 20 GAUGE. PATIENT TOLERATED WELL. PATIENT HOOKED TO MONITOR FOR CONTINOUS MONITORING. Addendum: 02/03/20 at 1628 by PETRA CARLSON RN RN CORRECT TIME [id number]
[2020-02-03 14:55] VITALS: BP 129/63
--- NOTE | 2020-02-03 16:13 | NUR ---
PATIENT AMBULATED TO BATHROOM WITH STANDBY ASSIST. PATIENT ABLE TO PROVIDE URINE SAMPLE. SAMPLE SENT TO LAB THROUGH [employer] [facility]. PATIENT RESTING BACK IN BED COMFORTABLY.
[2020-02-03 16:35] VITALS: BP 120/76
--- NOTE | 2020-02-03 16:38 | NUR ---
D/C NOTE: PATIENT INSTRUCTED ON NEW MEDICATION PRESCRIPTION. NO S/S OF DISTRESS. PATIENT ALERT AND ORIENTED. IV TO R WRIST DC'D. PATIENT AMBULATED OUT OF EMERGENCY ROOM WITH INSTRUCTIONS AND PRESCRIPTIONS..
[2020-02-03 17:34] LABS: Urine Bacteria FEW /hpf (None Seen); Urine Blood 1+ /uL (Negative); Urine Mucus FEW (None Seen); Urine Specific Gravity 1.008 (1.001-1.035); Urine WBC 4 /hpf (0 - 5)
== END 2020-02-03 17:01 | disposition home or self-care (01) ==
LOC: ER 12:14
DX: N20.1 Calculus of ureter (principal); N13.30 Unspecified hydronephrosis; K21.9 Gastro-esophageal reflux disease without esophagitis; E78.5 Hyperlipidemia, unspecified; I10 Essential (primary) hypertension; Z87.442 Personal history of urinary calculi
CPT/HCPCS: 36415; 74176; 80053; 81001; 83735; 85025; 96361; 96374; 96375; 99284; J1885; J2405; J7030

== ENCOUNTER → 2020-02-15 | Outpatient (CLI) | payer BC | END | disposition home or self-care (01) | LOC: LAB 09:42 | PROVIDERS: ATTEND Student in an Organized Health Care Education/Training Program | DX: U07.1 COVID-19 (principal) | CPT/HCPCS: C9803; U0003 ==

== ENCOUNTER → 2020-03-21 | Outpatient (CLI) | payer BC ==
[2020-03-21 16:38] LABS: Albumin 3.9 g/dL (3.4-5.0)
[2020-03-21 16:42] LABS: Bilirubin, Direct 0.2 mg/dL (0-0.2); Bilirubin, Total 1.1 mg/dL (0.2-1.0); Total Protein 7.8 g/dL (6.4-8.2)
== END | disposition home or self-care (01) ==
LOC: LAB 15:28
PROVIDERS: ATTEND Internal Medicine
DX: E78.5 Hyperlipidemia, unspecified (principal)
CPT/HCPCS: 36415; 80061; 80076

== ENCOUNTER → 2020-06-11 | Outpatient (CLI) | payer BC ==
[2020-06-11 11:39] LABS: Albumin 3.7 g/dL (3.4-5.0)
[2020-06-11 11:43] LABS: Bilirubin, Direct 0.2 mg/dL (0-0.2); Bilirubin, Total 0.8 mg/dL (0.2-1.0); Total Protein 7.3 g/dL (6.4-8.2)
== END | disposition home or self-care (01) ==
LOC: LAB 10:35
PROVIDERS: ATTEND Internal Medicine
DX: E78.5 Hyperlipidemia, unspecified (principal); R73.03 Prediabetes
CPT/HCPCS: 36415; 80061; 80076; 83036

== ENCOUNTER → 2020-07-10 | Outpatient (CLI) | payer BC | END | disposition home or self-care (01) | LOC: XY 09:57 | PROVIDERS: ATTEND Internal Medicine | DX: G45.9 Transient cerebral ischemic attack, unspecified (principal) | CPT/HCPCS: 93886 ==

== ENCOUNTER → 2020-08-01 | Outpatient (CLI) | payer BC | END | disposition home or self-care (01) | LOC: XYW 12:41 | PROVIDERS: ATTEND Internal Medicine | DX: I20.9 Angina pectoris, unspecified (principal) | CPT/HCPCS: 93306 ==

== ENCOUNTER → 2020-09-04 | Outpatient (CLI) | payer BC ==
[2020-09-04 10:27] LABS: Albumin 3.9 g/dL (3.4-5.0); Bilirubin, Direct 0.3 mg/dL (0-0.2); Bilirubin, Total 1.1 mg/dL (0.2-1.0); Total Protein 7.6 g/dL (6.4-8.2)
== END | disposition home or self-care (01) ==
LOC: LAB 09:32
PROVIDERS: ATTEND Internal Medicine
DX: E78.5 Hyperlipidemia, unspecified (principal); R73.03 Prediabetes
CPT/HCPCS: 36415; 80061; 80076

== ENCOUNTER → 2020-12-03 | Outpatient (CLI) | payer BC | END | disposition home or self-care (01) | LOC: LAB 15:22 | PROVIDERS: ATTEND Internal Medicine | DX: Z12.11 Encounter for screening for malignant neoplasm of colon (principal); E78.5 Hyperlipidemia, unspecified; R73.03 Prediabetes | CPT/HCPCS: 36415; 82043; 82270; 82533; 84443 ==

== ENCOUNTER → 2021-03-06 | Outpatient (CLI) | payer BC ==
[2021-03-06 08:12] LABS: Cholesterol 216 mg/dL (< 200); HDL Cholesterol 63 mg/dL (40-59); LDL Cholesterol 126 mg/dL (< 100); Triglycerides 96 mg/dL (< 150)
== END | disposition home or self-care (01) ==
LOC: LAB 06:42
PROVIDERS: ATTEND Internal Medicine
DX: R73.03 Prediabetes (principal); E78.5 Hyperlipidemia, unspecified
CPT/HCPCS: 36415; 80061; 82306; 83036

== ENCOUNTER → 2021-04-28 | Outpatient (CLI) | payer BC | END | disposition home or self-care (01) | LOC: LAB 07:16 | PROVIDERS: ATTEND Nurse Practitioner Family | DX: R30.0 Dysuria (principal); R39.0 Extravasation of urine; Z20.822 Contact with and (suspected) exposure to COVID-19 | CPT/HCPCS: 87086; C9803; U0003 ==

== ENCOUNTER → 2021-10-08 | Outpatient (CLI) | payer BC ==
[2021-10-08 12:48] LABS: Albumin 3.9 g/dL (3.4-5.0); Bilirubin, Direct 0.2 mg/dL (0-0.2); Total Protein 7.3 g/dL (6.4-8.2)
== END | disposition home or self-care (01) ==
LOC: LAB 10:46
PROVIDERS: ATTEND Internal Medicine
DX: E78.5 Hyperlipidemia, unspecified (principal)
CPT/HCPCS: 36415; 80061; 80076

== ENCOUNTER → 2022-01-29 | Outpatient (CLI) | payer BC ==
[2022-01-29 09:04] LABS: Cholesterol 256 mg/dL (< 200); HDL Cholesterol 58 mg/dL (40-59); LDL Cholesterol 184 mg/dL (< 100); Triglycerides 119 mg/dL (< 150)
== END | disposition home or self-care (01) ==
LOC: LAB 07:58
PROVIDERS: ATTEND Internal Medicine
DX: E66.9 Obesity, unspecified (principal); R73.03 Prediabetes
CPT/HCPCS: 36415; 80061; 83036; 85652

== ENCOUNTER → 2022-06-22 | Outpatient (CLI) | payer BC ==
[2022-06-22 08:43] LABS: Albumin 3.9 g/dL (3.4-5.0); Bilirubin, Direct 0.2 mg/dL (0-0.2)
[2022-06-22 08:45] LABS: Bilirubin, Total 0.8 mg/dL (0.2-1.0); Total Protein 7.4 g/dL (6.4-8.2)
== END | disposition home or self-care (01) ==
LOC: LAB 07:55
PROVIDERS: ATTEND Internal Medicine
DX: R73.03 Prediabetes (principal); E78.5 Hyperlipidemia, unspecified
CPT/HCPCS: 36415; 80061; 80076; 82043

== ENCOUNTER → 2023-07-02 | Outpatient (CLI) | payer BC | END | disposition home or self-care (01) | LOC: LAB 11:36 | PROVIDERS: ATTEND Anesthesiology | DX: N39.0 Urinary tract infection, site not specified (principal) | CPT/HCPCS: 87086; 87088; 87186 ==

== ENCOUNTER → 2023-10-06 | Outpatient (CLI) | payer BC ==
[2023-10-06 09:11] LABS: Basophils # (auto) 0.1 10 ^3/uL (0-0.2); Basophils % (auto) 1.2 % (0.0-2.0); Eosinophils # (auto) 0.3 10 ^3/uL (0-0.8); Eosinophils % (auto) 3.5 % (0.0-7.0); Hematocrit 41.5 % (36.0-46.0); Hemoglobin 14.2 g/dL (12.2-16.2); Lymphocytes # (auto) 2.6 10 ^3/uL (0.4-5.4); Lymphocytes % (auto) 36.1 % (10.0-50.0); Mean Corpuscular Hemoglobin 30.6 pg (28.0-32.0); Mean Corpuscular Hgb Conc. 34.1 g/dL (32.0-36.0); Mean Corpuscular Volume 89.6 fL (80.0-100.0); Monocytes # (auto) 0.7 10 ^3/uL (0-1.3); Monocytes % (auto) 9.7 % (0.0-12.0); Neutrophils # (auto) 3.6 10 ^3/uL (1.6-8.6); Neutrophils % (auto) 49.5 % (37.0-80.0); Nucleated Red Blood Cells % 0.2 %; Platelet Count (auto) 300 10^3/uL (140-450); Red Blood Cells 4.63 10^6/uL (4.0-5.20); White Blood Cell 7.3 10^3/uL (4.4-10.8)
[2023-10-06 09:38] LABS: Alanine Aminotransferase 22 U/L (7-40); Albumin 4.4 g/dL (3.2-4.8); Alkaline Phosphatase 76 U/L (46-116); Anion Gap 5 (5-15); Aspartate Aminotransferase 23 U/L (13-40); BUN/Creatinine Ratio 13.3 (10.0-20.0); Blood Urea Nitrogen 10 mg/dL (9-23); Carbon Dioxide 27 mmol/L (20-30); Chloride 109 mmol/L (98-107); Glucose 112 mg/dL (74-106); Potassium 4.3 mmol/L (3.5-5.1); Sodium 141 mmol/L (136-145)
[2023-10-06 09:39] LABS: Bilirubin, Total 1.4 mg/dL (0.2-1.0); Total Protein 7.4 g/dL (5.7-8.2)
[2023-10-06 09:55] LABS: Creatinine, Urine 147.38 mg/dL (30.0-125.0)
== END | disposition home or self-care (01) ==
LOC: LAB 08:52
PROVIDERS: ATTEND Internal Medicine
DX: Z12.11 Encounter for screening for malignant neoplasm of colon (principal); R73.03 Prediabetes; E78.5 Hyperlipidemia, unspecified
CPT/HCPCS: 36415; 80053; 82043; 82570; 83036; 84443; 85025

== ENCOUNTER → 2023-12-13 | Outpatient (CLI) | payer BC ==
[2023-12-13 10:45] LABS: Anion Gap 7 (5-15); Carbon Dioxide 30 mmol/L (20-31); Chloride 103 mmol/L (98-107); Sodium 140 mmol/L (136-145)
[2023-12-13 10:46] LABS: Calcium 10.7 mg/dL (8.7-10.4)
[2023-12-13 10:51] LABS: BUN/Creatinine Ratio 11.9 (10.0-20.0); Blood Urea Nitrogen 10 mg/dL (9-23); Glucose 118 mg/dL (74-106)
== END | disposition home or self-care (01) ==
LOC: LAB 09:16
PROVIDERS: ATTEND Internal Medicine
DX: R73.03 Prediabetes (principal); E03.9 Hypothyroidism, unspecified
CPT/HCPCS: 36415; 80048; 84443; 86376

== ENCOUNTER → 2024-05-12 | Outpatient (CLI) | payer BC | END | disposition home or self-care (01) | LOC: LAB 06:51 | PROVIDERS: ATTEND Internal Medicine | DX: D35.01 Benign neoplasm of right adrenal gland (principal); E03.9 Hypothyroidism, unspecified; E78.5 Hyperlipidemia, unspecified; E66.9 Obesity, unspecified; Z79.899 Other long term (current) drug therapy | CPT/HCPCS: 36415; 82306; 82310; 83970; 84443 ==

== ENCOUNTER → 2024-08-14 | Outpatient (CLI) | payer BC ==
[2024-08-14 08:18] LABS: Urine Bacteria FEW /hpf (None Seen); Urine Blood 1+ /uL (Negative); Urine Clarity Turbid (Clear); Urine Color Light-Yellow (Yellow); Urine Mucus FEW (None Seen); Urine Protein, UAD Negative (Negative); Urine Specific Gravity 1.023 (1.001-1.035); Urine Squamous Epithelial Cell MOD /hpf (<5); Urine Urobilinogen Normal (Negative); Urine WBC 5 /HPF (0-5)
[2024-08-14 08:56] LABS: Creatinine, Urine 158.3 mg/dL (30.0-125.0)
[2024-08-14 09:00] LABS: Alanine Aminotransferase 23 U/L (7-40); Alkaline Phosphatase 64 U/L (46-116); Anion Gap 8 (5-15); BUN/Creatinine Ratio 13.9 (10.0-20.0); Blood Urea Nitrogen 11 mg/dL (9-23); Carbon Dioxide 29 mmol/L (20-31); Chloride 106 mmol/L (98-107); Potassium 4.1 mmol/L (3.5-5.1); Sodium 143 mmol/L (136-145); Triglycerides 146 mg/dL (< 150)
[2024-08-14 09:02] LABS: Albumin 4.4 g/dL (3.2-4.8); Bilirubin, Total 0.7 mg/dL (0.2-1.0); Cholesterol 165 mg/dL (< 200); HDL Cholesterol 46 mg/dL (40-59)
[2024-08-14 09:06] LABS: Glucose 119 mg/dL (74-106); LDL Cholesterol 103 mg/dL (< 100)
[2024-08-14 09:17] LABS: Aspartate Aminotransferase 17 U/L (13-40)
== END | disposition home or self-care (01) ==
LOC: LAB 07:40
PROVIDERS: ATTEND Internal Medicine
DX: D35.01 Benign neoplasm of right adrenal gland (principal); E78.5 Hyperlipidemia, unspecified; E03.9 Hypothyroidism, unspecified; R73.03 Prediabetes
CPT/HCPCS: 36415; 80053; 80061; 81001; 82043; 82570; 83036; 83970; 84443

== ENCOUNTER 2024-10-02 06:24 | Outpatient (CLI) | payer BC | END 2024-10-02 17:00 | disposition home or self-care (01) | LOC: LAB 06:24 | PROVIDERS: ATTEND Internal Medicine | DX: R30.9 Painful micturition, unspecified (principal) | CPT/HCPCS: 87086; 87088 ==

== ENCOUNTER 2024-10-18 15:50 | Outpatient (CLI) | payer BC | END 2024-10-18 17:00 | disposition home or self-care (01) | LOC: LAB 15:50 | PROVIDERS: ATTEND Internal Medicine | DX: N39.0 Urinary tract infection, site not specified (principal) | CPT/HCPCS: 87086 ==